=== PATIENT | female | born 1950 | race Caucasian/White ===

== ENCOUNTER → 2017-12-22 | Outpatient (CLI) | payer OTHER | END | disposition home or self-care (01) | LOC: MAMMO 09:36 | DX: Z12.31 Encounter for screening mammogram for malignant neoplasm of breast (principal) | CPT/HCPCS: 77067 ==

== ENCOUNTER → 2019-07-08 | Outpatient (CLI) | payer OTHER ==
--- NOTE | 2019-07-08 16:22 | KCIC ---
BILATERAL SCREENING MAMMOGRAM, 3-D History: Routine screening. Comparison: Bilateral mammogram 12/22/2017 and 2013. Right breast ultrasound June 01, 2014. Technique: MLO and CC digital tomosynthesis (3D) images obtained. Radiologist reviewed these images on dedicated workstation. Findings: Breast Tissue Density C : The breasts are heterogeneously dense, which may obscure small masses. There is a tiny well-circumscribed mass in the retroareolar left breast just medial and superior to the nipple line at anterior depth, CC slice 42. There is a second tiny well-circumscribed mass in the lower outer left breast at anterior depth, CC and MLO slices 18. There is a stable intramammary lymph node in the right breast 10:00 B position. There are no suspicious microcalcifications or architectural distortion. IMPRESSION: There are 2 tiny well-circumscribed masses in the anterior left breast. Recommend further evaluation with ultrasound. BI-RADS Category 0: Incomplete: Need additional imaging evaluation. The images were reviewed with computer-aided detection. Patient information is entered into reminder system with a target due date for the next screening mammogram. Mammography is the most sensitive method for finding small breast cancers, but it does not detect them all and is not a substitute for careful clinical examination. A negative mammogram does not negate a clinically suspicious finding and should not result in delay in biopsying a clinically suspicious abnormality. "Our facility is accredited by the [employer] Mammography [employer]." Electronically signed by: Servando Pak MD (07/08/2019 4:19 PM) [id number]
== END | disposition home or self-care (01) ==
LOC: KCIC MAMMO 09:13
PROVIDERS: ATTEND Family Medicine
DX: Z12.31 Encounter for screening mammogram for malignant neoplasm of breast (principal); N63.20 Unspecified lump in the left breast, unspecified quadrant
CPT/HCPCS: 77063; 77067

== ENCOUNTER → 2019-07-29 | Outpatient (CLI) | payer OTHER ==
--- NOTE | 2019-07-30 07:52 | KCIC ---
Left breast ultrasound: Reason for examination: Circumscribed nodules on screening mammogram. Comparison is made to mammographic exam dated 07/08/2019. Left whole breast ultrasound including evaluation of all 4 quadrants and the retroareolar and axillary regions of the left breast was performed. In the 3:00 position 1 cm from the nipple, there is a hypoechoic circumscribed lesion in parallel orientation measuring approximately 8.6 mm in greatest dimension which may represent a complicated cyst or some cystic ductal ectasia. No vascular flow is seen. In the 4:00 position 3 cm from the nipple, there is a small 3.7 mm hypoechoic lesion with a benign fibrocystic appearance. In the 12:00 position 2 cm from the nipple, there is a hypoechoic circumscribed fibrocystic nodule measuring approximately 4.2 mm in greatest dimension. No suspicious nodules are seen. No abnormal appearing lymph nodes are seen in the axilla. IMPRESSION: Small benign-appearing fibrocystic type lesions at the 3:00, 4:00 and 12:00 positions. No suspicious abnormality seen. Recommend 3 month follow-up with ultrasound. BI-RADS Category 3: Probably Benign. "Our facility is accredited by the [employer] Mammography [employer]." This patient's information has been entered into a reminder system for the patient to be notified with the results of her examination and a target date for the next mammogram. Electronically signed by: Nannette Douglas MD (07/30/2019 7:49 AM) [id number]
== END | disposition home or self-care (01) ==
LOC: KCIC US 09:46
PROVIDERS: ATTEND Family Medicine
DX: N64.89 Other specified disorders of breast (principal); R92.8 Other abnormal and inconclusive findings on diagnostic imaging of breast
CPT/HCPCS: 76641

== ENCOUNTER → 2019-11-02 | Outpatient (CLI) | payer OTHER ==
--- NOTE | 2019-11-02 15:09 | KCIC ---
Left breast ultrasound: Reason for examination: Follow-up nodules. Comparison is made to previous study dated 07/29/2019. Left whole breast ultrasound including evaluation of all 4 quadrants and the retroareolar and axillary regions of the left breast was performed. There continues to be a small 3.8 mm hypoechoic circumscribed lesion at the 4:00 position 3 cm from the nipple which shows no significant change. There continues to be 6.6 mm hypoechoic fibrocystic lesion at the 3:00 position 1 cm from the nipple which shows a slight decrease in size. There also continues to be a small hypoechoic 4.7 mm nodule at the 12:00 position 2 cm from the nipple which shows no significant change. No new cystic or solid lesions are seen. No abnormal appearing lymph nodes are seen in the axilla. IMPRESSION: Continued presence of benign-appearing nodules in the left breast which appear to be stable. No suspicious lesions are seen. Recommend reevaluation in 6 months at the time of bilateral mammograms. BI-RADS Category 3: Probably Benign. "Our facility is accredited by the [employer] Mammography [employer]." This patient's information has been entered into a reminder system for the patient to be notified with the results of her examination and a target date for the next mammogram. Electronically signed by: Nannette Douglas MD (11/02/2019 3:06 PM) [id number]
== END | disposition home or self-care (01) ==
LOC: KCIC US 12:56
PROVIDERS: ATTEND Family Medicine
DX: N63.21 Unspecified lump in the left breast, upper outer quadrant (principal); N63.23 Unspecified lump in the left breast, lower outer quadrant
CPT/HCPCS: 76641